=== PATIENT | male | born 1975 | race Caucasian/White ===

== ENCOUNTER 2017-03-20 06:23 | Day surgery (SDC) | payer BC ==
--- NOTE | 2017-03-01 10:16 | HP ---
ADMITTING HISTORY AND PHYSICAL: DATE OF ADMISSION: 03/20/17 ADMITTING DIAGNOSIS: Left renal calculus. PLANNED PROCEDURE: Shock wave lithotripsy of left renal calculus. SURGEON: Dr. Garcia ADMITTING HISTORY AND PHYSICAL: Ramiro Ji is a 41-year-old gentleman who originally had pain related to a calculus in the right ureter which he subsequently passed. He had a followup ultrasound, which revealed a 1.3-cm calculus in the lower pole of the left kidney and he would like to have treatment of the same. PAST MEDICAL HISTORY: Significant for kidney stones. PAST SURGICAL HISTORY: Significant for: 1. Appendectomy. 2. Bilateral ankle fractures. 3. LASIK eye surgery. MEDICATIONS ON ADMISSION: Ibuprofen p.r.n. ALLERGIES: No known drug allergies. SMOKING HISTORY: He is a 5-paig-ydt-day smoker for the last 30 years. REVIEW OF SYSTEMS: He is otherwise in good health. He denies any chest pain or shortness of breath. There is no history of diabetes mellitus or any other major systemic illness. PHYSICAL EXAMINATION VITAL SIGNS: Reveals blood pressure of 128/82, pulse 77 per minute and regular , oxygen saturation 98% on room air. LUNGS: Clear bilaterally. CARDIOVASCULAR: Regular rate and rhythm. S1 and S2. ABDOMEN: Soft with mild left flank tenderness. IMPRESSION: A 41-year-old gentleman with a nonobstructing left renal calculus , who desires treatment of the same. I have discussed the procedure in detail including possible risks of bleeding, infection, incomplete fragmentation, injury to the kidney and he understands and wishes to proceed as planned. PLAN: Shockwave lithotripsy of left renal calculus. CC: Dr. Sandra Rosenberg* [id number] #: [id number] [place]PITALTimi
[~2017-03-20 06:23] MED LIST: Buffered Lidocaine 1% SYRIN* 3 ML/SYR SYRINGE INTRADERM ONE; Dexamethasone IV* 4 MG/ML 1 ML (4 MG) IV SLOW PU ONE; Famotidine IV* 10 MG/ML 2 ML (20 mg) IV ONE
[2017-03-20] MEDS ORDERED: cefTRIAXone(*) 2 GM ADDV.VIAL IVPB ONE (07:05)
[2017-03-20] MEDS ORDERED: Dexamethasone IV* 4 MG/ML 1 ML (4 MG) ONE (07:05)
[2017-03-20] MEDS ORDERED: Famotidine IV* 10 MG/ML 2 ML (20 mg) ONE (07:05)
[2017-03-20] MEDS ORDERED: Midazolam* 1 MG/ML 2 ML VIAL (2 MG) ONE (07:26)
[2017-03-20] MEDS ORDERED: Remifentanil* 2 MG VIAL ONE (07:26)
[2017-03-20] MEDS ORDERED: fentaNYL* 50 MCG/ML 2 ML VIAL (100 MCG VIAL) ONE (07:26)
--- NOTE | 2017-03-20 08:07 | RAD ---
Indication: Bilateral urolithiasis. Comparison: January 30, 2017 Technique: Supine abdomen. Report: Approximate 6 mm stone or conglomerate of stones at the level of the inferior pole of the LEFT kidney. No additional suspicious calcifications visualized level of either renal fossa or along the expected course of the ureters. Densities at the RIGHT lower quadrant likely reflect postsurgical change of appendectomy consistent with surgical history. Unremarkable bowel gas pattern and soft tissue contours. IMPRESSION: Unchanged LEFT nephrolithiasis.
[2017-03-20] MEDS ORDERED: Furosemide IV* 10 MG/ML 2 ML VIAL (20 MG) ONE (08:18)
[2017-03-20] MEDS ORDERED: EPHEDrine (Pressors)* 50 MG/ML VIAL ONE (08:38)
[2017-03-20] MEDS ORDERED: fentaNYL* 50 MCG/ML 2 ML VIAL (100 MCG VIAL) IV PRN (08:47)
[2017-03-20] MEDS ORDERED: DiMENhydriNATE IV* 50 MG/ML VIAL IV PUSH PRN (08:47)
[2017-03-20 09:35] VITALS: BP 127/85
[2017-03-20] MEDS ORDERED: Ondansetron INJ* 2 MG/ML VIAL ONE (09:48)
--- NOTE | 2017-03-21 01:29 | OP ---
DATE OF OPERATION: 03/20/17 - SDS DATE OF : [birth year] - AGE: 42 years, Male. SURGEON: Srinivas Garcia MD ANESTHESIOLOGIST: Dr. Ibrahim. ANESTHESIA: General. PRE-OP DIAGNOSIS: Left renal calculus. POST-OP DIAGNOSIS: Left renal calculus. OPERATIVE PROCEDURE: Shock wave lithotripsy of left renal calculus. COMPLICATIONS: None. POSTOPERATIVE CONDITION: Stable. INDICATIONS: Ramiro Ji Jr. is a 42-year-old gentleman with a history of renal calculi. He had been evaluated and noted to have an approximately 1.3 cm calculus on ultrasound, which appeared smaller on the x-ray. He desires and is now being brought in for shock wave lithotripsy after thorough discussion of the procedure and possible risks including bleeding, infection, and incomplete fragmentation. DESCRIPTION OF PROCEDURE: After induction of the general anesthesia, the patient was placed in dorsal lithotomy position. The calculus, which was initially difficult to see on the preoperative x-ray, was identified on fluoroscopy and shock wave lithotripsy was commenced at a rate of 60 shocks per minute. After the initial 300 shocks, there was the pause in lithotripsy for several minutes in an effort to minimize any potential trauma to the kidney. Lithotripsy was then resumed and periodic imaging revealed good localization and fragmentation. A total of 1400 shocks were administered. The patient tolerated the procedure satisfactorily and was transferred back to the recovery area in stable condition. [id number] #: [id number] MTDD
== END 2017-03-20 09:52 | disposition home or self-care (01) ==
LOC: OR 06:23
PROVIDERS: ATTEND Urology
DX: N20.0 Calculus of kidney (principal); F17.210 Nicotine dependence, cigarettes, uncomplicated; Z87.442 Personal history of urinary calculi
CPT/HCPCS: 74000; J0696; J1100; J1940; J2250; J2405; J3010

== ENCOUNTER 2017-11-15 11:27 | Observation (INO) | payer BC ==
[2017-11-15] MEDS ORDERED: NS 0.9% 1000 ML* 1,000 ML IV ONE (12:47)
[2017-11-15] MEDS ORDERED: Aspirin Low Dose CHEW TAB* 81 MG PO ONE (12:47)
[2017-11-15 13:21] LABS: Hematocrit 41 % (42-52); Hemoglobin 14.3 g/dl (14.0-18.0); Mean Corpuscular HGB Conc 35 g/dl (31-36); Mean Corpuscular Hemoglobin 33 pg (27-31); Mean Corpuscular Volume 94 fL (80-94); Mean Platelet Volume 8 um3 (7.4-10.4); Red Blood Count 4.38 10^6/ul (4.0-5.4); Red Cell Distribution Width 13 % (10.5-15); White Blood Count 7.9 10^3/ul (3.5-10.8)
[2017-11-15 13:40] LABS: Albumin 4.1 g/dL (3.2-5.2); Anion Gap 3 mmol/L (2-11); BUN/Creatinine Ratio 17.2 (8-20); Blood Urea Nitrogen 17 mg/dL (6-24); CO2 Carbon Dioxide 32 mmol/L (22-32); Calcium 9.4 mg/dL (8.6-10.3); Chloride 105 mmol/L (101-111); EGFR African American 107.7 (>60); EGFR Non-African American 83.7 (>60); Glucose 92 mg/dL (70-100); Magnesium 2.1 mg/dL (1.9-2.7); Potassium 3.9 mmol/L (3.5-5.0); Sodium 140 mmol/L (133-145); Total Protein 6.6 g/dL (6.4-8.9)
[2017-11-15 13:41] LABS: ALT 17 U/L (7-52); AST < 3 U/L (13-39); Alkaline Phosphatase 60 U/L (34-104); C Reactive Protein 1.59 mg/L (< 5.00); Creatine Kinase 145 U/L (10-223); Globulin 2.5 g/dL (2-4); Lipase 29 U/L (11.0-82.0)
[2017-11-15] MEDS ORDERED: Iohexol 350* (CONTRAST) 500 ML MDV IV ONE (13:51)
[2017-11-15 14:13] LABS: Urine Bilirubin Negative (Negative); Urine Glucose Negative (Negative); Urine Nitrite Negative (Negative)
[2017-11-15 14:19] LABS: TSH (Thyroid Stimulating Horm) 1.29 mcIU/mL (0.34-5.60)
--- NOTE | 2017-11-15 14:32 | RAD ---
HISTORY: Chest pain COMPARISONS: None TECHNIQUE: Multiple contiguous axial CT scans of the chest were obtained after the administration of nonionic intravenous contrast, timed to the pulmonary arterial phase of contrast enhancement.. Coronal and sagittal multiplanar reformations are also submitted for review. FINDINGS: NECK AND THYROID: The lower neck and thyroid are unremarkable. CHEST WALL: There is no lower cervical, axillary, or supraclavicular lymphadenopathy by size criteria. HEART AND PERICARDIUM: The heart is unremarkable. AORTA AND PULMONARY VASCULATURE: There is no pulmonary arterial filling defect to suggest pulmonary embolism. There is no linear filling defect within the aorta to suggest aortic dissection. MEDIASTINUM: There is no mediastinal lymphadenopathy by size criteria. TARAS: There is no hilar lymphadenopathy by size criteria. AIRWAY AND ESOPHAGUS: The airway is unremarkable, without endobronchial filling defect. The esophagus is grossly normal. LUNG PARENCHYMA: The lungs are clear. PLEURA: No pleural abnormalities are noted. UPPER ABDOMEN: There is low-attenuation lesion of the right of liver measuring simple fluid in attenuation most consistent with a hepatic cyst. BONES AND SOFT TISSUES: Mild degenerative changes are noted OTHER: None. IMPRESSION: NO PULMONARY ARTERIAL FILLING DEFECT TO SUGGEST PULMONARY EMBOLISM.
[2017-11-15] MEDS ORDERED: Morphine INJ* 2 MG/ML 1 ML SYRINGE (TWO MG - NEW SYRINGE VERSION) IV PRN (15:55)
[2017-11-15] MEDS ORDERED: Acetaminophen TAB* 325 MG PO PRN (15:55)
[2017-11-15] MEDS: Nicotine PATCH 21 MG/24 HR* PATCH TRANSDERM SCH (17:59)
--- NOTE | 2017-11-15 18:04 | ED ---
Kalyan Abad Julia, scribed for Enrique Khan MD on 11/15/17 at 1237 . HPI Chest Pain - HPI Summary HPI Summary: This patient is a 42 year old M presenting to [facility] with a chief complaint of mid sternal chest pain characterized by pressure and dullness that worsens throughout the day since a week ago. The patient rates the pain 1/10 in severity at rest and 5/10 with exertion. Symptoms aggravated by exertion. Symptoms alleviated by rest. Patient reports upper back pain alleviated by rest and mild bilateral UE pain. Patient denies radiation to neck, nausea, diaphoresis, cough, edema, or SOB. - History of Current Complaint Chief Complaint: EDChestPainROMI Time Seen by Provider: 11/15/17 12:10 Hx Obtained From: Patient Onset/Duration: Started Weeks Ago - 1 Timing: Constant Current Severity: Mild Pain Intensity: 5 Pain Scale Used: 0-10 Numeric Chest Pain Location: Mid Sternal Chest Pain Radiates: No Character: Dull/Aching, Pressure/Squeezing Aggravating Factor(s): Exertion Alleviating Factor(s): Rest Associated Signs and Symptoms: Positive: Chest Pain, Back Pain - upper, Other: - bilateral extremity pain - Allergy/Home Medications Allergies/Adverse Reactions: Allergies Allergy/AdvReac Type Severity Reaction Status Date / Time No Known Allergies Allergy Verified 03/13/17 10:00 Home Medications: Home Medications Amphetamine/Dextroamph ER(NF) [Adderal XR (NF)] 20 mg PO DAILY 11/15/17 [ History Confirmed 11/15/17] Amphetamine/Dextroamph ER(NF) [Adderal XR (NF)] 30 mg PO DAILY 11/15/17 [ History Confirmed 11/15/17] PMH/Surg Hx/FS Hx/Imm Hx History: Reports: Hx Kidney Stones - BILAT, Other Problems/Disorders - LEFT RENAL CALCULI CURRENTLY Musculoskeletal History: Reports: Hx Arthritis - HANDS, SHOULDERS, Other Musculoskeletal History - BILATERAL BROSTROM ANKLE REPAIR 2008 Sensory History: Denies: Hx Cataracts, Hx Contacts or Glasses, Hx Glaucoma, Hx Hearing Aid Opthamlomology History: Denies: Hx Cataracts, Hx Contacts or Glasses, Hx Glaucoma Neurological History: Reports: Other Neuro Impairments/Disorders - ADHD, TAKES RX DAILY - Surgical History Surgery Procedure, Year, and Place: BILATERAL BROSTROM ANKLE REPAIR 2008 [place]. APPENDECTOMY 2002 [place]. LASIK 2012 [place] Hx Anesthesia Reactions: No Infectious Disease History: No Infectious Disease History: Denies: Traveled Outside the [place] in Last 30 Days - Family History Known Family History: Positive: Cardiac Disease - CHF, HTN - maternal - Social History Alcohol Use: None Hx Substance Use: No Substance Use Type: Reports: None Hx Tobacco Use: Yes Smoking Status (MU): Heavy Every Day Tobacco Smoker Type: Cigarettes Amount Used/How Often: 1 PPD FOR 28 YRS Length of Time of Smoking/Using Tobacco: 28 YRS Have You Smoked in the Last Year: Yes Review of Systems Negative: Fever, Skin Diaphoresis Positive: Chest Pain, Other - negative - radiation Negative: Shortness Of Breath, Cough Negative: Nausea Positive: Other - upper back and bilateral UE pain. Negative: Edema All Other Systems Reviewed And Are Negative: Yes Physical Exam - Summary Physical Exam Summary: General: well-appearing, no pain distress Skin: warm, color reflects adequate perfusion, dry Head: normal Eyes: EOMI, EUGENE ENT: normal Neck: supple, nontender Respiratory: CTA, breath sounds present Cardiovascular: RRR Abdomen: soft, nontender Bowel: present Musculoskeletal: normal, strength/ROM intact Neurological: normal, sensory/motor intact, A&O x3 Psychological: affect/mood appropriate Triage Information Reviewed: Yes Vital Signs On Initial Exam: Initial Vitals Temp Pulse Resp BP Pulse Ox 97.2 F 63 18 142/80 98 11/15/17 11:29 11/15/17 11:29 11/15/17 11:29 11/15/17 11:29 11/15/17 11:29 Vital Signs Reviewed: Yes - [place] Coma Scale Coma Scale Total: 15 Diagnostics - Vital Signs Vital Signs Temp Pulse Resp BP Pulse Ox 11/15/17 12:00 89 27 94 11/15/17 11:53 21 122/81 11/15/17 11:29 97.2 F 63 18 142/80 98 - Laboratory Lab Results: Lab Results 11/15/17 11/15/17 11/15/17 Range/Units 13:11 13:11 13:11 WBC (3.5-10.8) 10^3/ul RBC (4.0-5.4) 10^6/ul Hgb (14.0-18.0) g/dl Hct (42-52) % MCV (80-94) fL MCH (27-31) pg MCHC (31-36) g/dl RDW (10.5-15) % Plt Count (150-450) 10^3/ul MPV (7.4-10.4) um3 Neut % (Auto) (38-83) % Lymph % (Auto) (25-47) % [place] % (Auto) (1-9) % Eos % (Auto) (0-6) % Baso % (Auto) (0-2) % Absolute Neuts (auto) (1.5-7.7) 10^3/ul Absolute Lymphs (auto) (1.0-4.8) 10^3/ul Absolute Monos (auto) (0-0.8) 10^3/ul Absolute Eos (auto) (0-0.6) 10^3/ul Absolute Basos (auto) (0-0.2) 10^3/ul Absolute Nucleated RBC 10^3/ul Nucleated RBC % INR (Anticoag Therapy) 0.91 (0.77-1.02) APTT 33.8 (26.0-36.3) seconds Sodium 140 (133-145) mmol/L Potassium 3.9 (3.5-5.0) mmol/L Chloride 105 (101-111) mmol/L Carbon Dioxide 32 (22-32) mmol/L Anion Gap 3 (2-11) mmol/L BUN 17 (6-24) mg/dL Creatinine 0.99 (0.67-1.17) mg/dL Est GFR ( Amer) 107.7 (>60) Est GFR (Non-Af Amer) 83.7 (>60) BUN/Creatinine Ratio 17.2 (8-20) Glucose 92 (70-100) mg/dL Lactic Acid (0.5-2.0) mmol/L Calcium 9.4 (8.6-10.3) mg/dL Magnesium 2.1 (1.9-2.7) mg/dL Total Bilirubin 0.30 (0.2-1.0) mg/dL AST < 3 L (13-39) U/L ALT 17 (7-52) U/L Alkaline Phosphatase 60 (34-104) U/L Total Creatine Kinase 145 (10-223) U/L CK-MB (CK-2) 2.1 (0.6-6.3) ng/mL Troponin I 0.00 (<0.04) ng/mL C-Reactive Protein 1.59 (< 5.00) mg/L B-Natriuretic Peptide 15 ( - 100) pg/mL Total Protein 6.6 (6.4-8.9) g/dL Albumin 4.1 (3.2-5.2) g/dL Globulin 2.5 (2-4) g/dL Albumin/Globulin Ratio 1.6 (1-3) Lipase 29 (11.0-82.0) U/L TSH 1.29 (0.34-5.60) mcIU/mL Urine Color Urine Appearance Urine pH (5-9) Ur Specific [place] (1.010-1.030) Urine Protein (Negative) Urine Ketones (Negative) Urine Blood (Negative) Urine Nitrate (Negative) Urine Bilirubin (Negative) Urine Urobilinogen (Negative) Ur Leukocyte Esterase (Negative) Urine Glucose (Negative) 11/15/17 11/15/17 11/15/17 Range/Units 13:11 13:11 13:40 WBC 7.9 (3.5-10.8) 10^3/ul RBC 4.38 (4.0-5.4) 10^6/ul Hgb 14.3 (14.0-18.0) g/dl Hct 41 L (42-52) % MCV 94 (80-94) fL MCH 33 H (27-31) pg MCHC 35 (31-36) g/dl RDW 13 (10.5-15) % Plt Count 178 (150-450) 10^3/ul MPV 8 (7.4-10.4) um3 Neut % (Auto) 63.0 (38-83) % Lymph % (Auto) 29.6 (25-47) % [place] % (Auto) 5.4 (1-9) % Eos % (Auto) 1.6 (0-6) % Baso % (Auto) 0.4 (0-2) % Absolute Neuts (auto) 5.0 (1.5-7.7) 10^3/ul Absolute Lymphs (auto) 2.3 (1.0-4.8) 10^3/ul Absolute Monos (auto) 0.4 (0-0.8) 10^3/ul Absolute Eos (auto) 0.1 (0-0.6) 10^3/ul Absolute Basos (auto) 0 (0-0.2) 10^3/ul Absolute Nucleated RBC 0.01 10^3/ul Nucleated RBC % 0.1 INR (Anticoag Therapy) (0.77-1.02) APTT (26.0-36.3) seconds Sodium (133-145) mmol/L Potassium (3.5-5.0) mmol/L Chloride (101-111) mmol/L Carbon Dioxide (22-32) mmol/L Anion Gap (2-11) mmol/L BUN (6-24) mg/dL Creatinine (0.67-1.17) mg/dL Est GFR ( Amer) (>60) Est GFR (Non-Af Amer) (>60) BUN/Creatinine Ratio (8-20) Glucose (70-100) mg/dL Lactic Acid 1.4 (0.5-2.0) mmol/L Calcium (8.6-10.3) mg/dL Magnesium (1.9-2.7) mg/dL Total Bilirubin (0.2-1.0) mg/dL AST (13-39) U/L ALT (7-52) U/L Alkaline Phosphatase (34-104) U/L Total Creatine Kinase (10-223) U/L CK-MB (CK-2) (0.6-6.3) ng/mL Troponin I (<0.04) ng/mL C-Reactive Protein (< 5.00) mg/L B-Natriuretic Peptide ( - 100) pg/mL Total Protein (6.4-8.9) g/dL Albumin (3.2-5.2) g/dL Globulin (2-4) g/dL Albumin/Globulin Ratio (1-3) Lipase (11.0-82.0) U/L TSH (0.34-5.60) mcIU/mL Urine Color Yellow Urine Appearance Clear Urine pH 6.0 (5-9) Ur Specific [place] 1.011 (1.010-1.030) Urine Protein Negative (Negative) Urine Ketones Negative (Negative) Urine Blood Negative (Negative) Urine Nitrate Negative (Negative) Urine Bilirubin Negative (Negative) Urine Urobilinogen Negative (Negative) Ur Leukocyte Esterase Negative (Negative) Urine Glucose Negative (Negative) Result Diagrams: 11/15/17 13:11 11/15/17 13:11 Lab Statement: Any lab studies that have been ordered have been reviewed, and results considered in the medical decision making process. - CT Chest CT CT Interpretation Completed By: Radiologist - NO PULMONARY ARTERIAL FILLING DEFECT TO SUGGEST PULMONARY EMBOLISM. ED isiah has reviewed this report. - EKG 14:55 Cardiac Rate: NL EKG Rhythm: Sinus Rhythm - at [address] Segment: Normal Ectopy: None Chest Pain Course/Dx - Course Course Of Treatment: DISCUSSED WITH DR TATUM. ADMIT HOSPITALIST. NO CRITICAL CARE TIME. - Diagnoses Provider Diagnoses: Chest pain Discharge - Discharge Plan Condition: Stable Disposition: ADMITTED TO [facility] The documentation as recorded by the Kalyan garcia Julia accurately reflects the service I personally performed and the decisions made by , Enrique Khan MD.
[2017-11-15] MEDS ORDERED: Nicotine Patch Removal NOTE FOLLOW UP SCH (21:00)
[2017-11-15] MEDS ORDERED: Calcium Carbonate CHEW TAB* 500 MG (TUMS) PO SCH (21:00)
--- NOTE | 2017-11-15 22:01 | HP ---
CC: Dr. Rosenberg * HISTORY AND PHYSICAL: DATE OF ADMISSION: 11/15/17 PRIMARY CARE PROVIDER: Dr. Rosenberg. ATTENDING PHYSICIAN WHILE IN THE HOSPITAL: Dr. Bev Winslow * (report dictated by Hailee Ferguson NP). CHIEF COMPLAINT: Chest pain. HISTORY OF PRESENT ILLNESS: Mr. Ji is a 42-year-old male patient, he has a history of ADHD only and he is a tobacco abuser. He comes into the ED today stating that 3 weeks ago he had a flu shot. He has had instances in the past where he has had shoulder and back pain from it, but last week it has been different. He said he has been diagnosed with pleurisy before and he thought it was related to his flu shots and he had one 3 weeks ago and he thought maybe the back and chest pain he was having was related to that. However, he says the last week the pain really started in his back, radiates in front of his shoulders and into his chest and has been described as tightness and pressure that has never really gone away 100%, but it comes and goes. He says he has not had any associated nausea, shortness of breath, or any diaphoresis and says the pain does not go into his jaw or down into his arms. He says that he was going to see his primary care and when he went up to the stairs he has noticed that the discomfort came on fairly severe and when he sat down, it got better. There was concern and the patient was sent into the ER today to be evaluated for the chest discomfort he had been having. He denies having any abdominal pain. There has been no recent URI symptoms. Denies having any leg pain or calf swelling, calf pain. Denies having any shortness of breath. He says he has been feeling well with the exception of this discomfort and denies having any swelling in the lower extremities. Because of the chest pain and the fact that it was exertional at one point and the fact that he is a smoker, there was concern this could represent acute coronary syndrome and we were asked to evaluate for admission. PAST MEDICAL HISTORY: Significant for: 1. ADHD. 2. Appendectomy. 3. Cystoscopy. 4. Ankle surgery. HOME MEDICATIONS: Include: 1. Adderall 50 mg daily. 2. Ibuprofen 600 mg every 6 hours as needed. ALLERGIES TO MEDICATIONS: Include no known drug allergies. FAMILY HISTORY: His mother was diabetic. His father did have a history of dementia. SOCIAL HISTORY: He is a 2-pack a day smoker for about 28 years. Does not drink alcohol. Surrogate decision maker is his . REVIEW OF SYSTEMS: There is no documented fever. He denied having any significant weight change. No ear discharge. No rhinorrhea. No sore throat. No thyroid enlargement. Does admit to having chest pain per my HPI. Denies having any shortness of breath. No orthopnea, no nocturnal dyspnea. There was no abdominal pain, no nausea, no vomiting. No dysuria, no frequency. There was no seizure, no loss of consciousness. There was no skin ulcerations, no pruritus. Review of 14 systems completed, all others were negative. PHYSICAL EXAMINATION GENERAL: At this time, Mr. Ji is a 42-year-old male patient, he appears to be well nourished, well developed. He is sitting in the ED stretcher. He does not appear to be in any acute distress. VITAL SIGNS: Blood pressure 114/66, pulse 68, respirations 20, O2 sat 99%, temperature 97.2. HEENT: Head is atraumatic. Eyes: EOMs intact. Sclerae are anicteric and not pale. Throat: Oral mucosa appears to be moist. No oropharyngeal erythema. NECK: Supple. LUNGS: Clear to auscultation bilaterally. No wheezes, rales, or rhonchi. HEART: Sounds S1, S2. Regular rate and rhythm. No murmurs, rubs, or gallops. ABDOMEN: Soft, flat, nontender. Bowel sounds were present. EXTREMITIES: Pulses were 2+ throughout. No peripheral edema. He had 5/5 strength. NEUROLOGICAL: The patient is awake, alert, and oriented x3. Tongue midline. Communications Maintainer were equal. No gross focal deficits. SKIN: Intact. DIAGNOSTIC STUDIES/LAB DATA: WBC of 7.9, RBC of 4.38, hemoglobin of 14.3, hematocrit of 41, platelet count of 178. INR of 0.91, PTT of 33.8. Sodium 140 , potassium 3.9, chloride of 105, bicarb 32, BUN 17, creatinine 0.99, glucose 92 , lactate 1.4, calcium 9.4, mag 2.1. Total bili 0.3, AST less than 3, ALT 17, alk phos 60. CK 145, troponin 0.00, CK-MB 2.1. CRP 1.5. BNP of 15. Albumin of 4.1, TSH of 1.29, lipase 29. Urine was obtained, it was negative. He did have a chest CTA, which revealed no pulmonary arterial filling defect to suggest PE. He had an EKG obtained today, which showed normal sinus rhythm, rate of 75. No ST elevations or T-wave inversions were noted. Old medical records were reviewed. ASSESSMENT AND PLAN: Mr. Ji is a 42-year-old male patient coming into the ED today with complaints of chest discomfort. We were asked to evaluate for admission. He will be admitted under observation status for: 1. Chest pain. At this point, he does have risk factors for acute coronary syndrome, so I do think he deserve serial troponins, telemetry, aspirin. He is not having any chest discomfort now. Serial EKGs, we are going to evaluate in the morning. We will check an A1c, EKG in the morning, and place him on telemetry and get a cardiac stress test. 2. History of attention deficit hyperactivity disorder. In the setting of him having a stress test tomorrow, I am going to hold his meds. He can be restarted at discharge. 3. Code status. Full code. 4. DVT prophylaxis. He is low risk. I am going to go ahead and place him on SCDs. 5. Fluids, electrolytes, and nutrition. He can have a heart healthy diet and is n.p.o. after midnight. TIME SPENT: On the admission was approximately 60 minutes, greater than half the time spent [id number] with the patient obtaining history and physical, other half time was spent going over the plan of care with the patient and implementing plan of care. I did discuss the plan of care with my attending, Dr. Winslow; she is in agreement. HAILEE FERGUSON NP [id number] #: [id number] MTDD
[2017-11-16 07:12] LABS: BUN/Creatinine Ratio 16.8 (8-20); Calcium 9.3 mg/dL (8.6-10.3); EGFR African American 112.9 (>60); EGFR Non-African American 87.8 (>60); Potassium 4.1 mmol/L (3.5-5.0)
[2017-11-16] MEDS: Nicotine PATCH 21 MG/24 HR* PATCH TRANSDERM SCH (07:37)
[2017-11-16] MEDS ORDERED: Aspirin Low Dose CHEW TAB* 81 MG PO SCH (09:00)
[2017-11-16 10:11] LABS: Hematocrit 42 % (42-52); Hemoglobin 14.1 g/dl (14.0-18.0); Mean Corpuscular HGB Conc 34 g/dl (31-36); Mean Corpuscular Hemoglobin 32 pg (27-31); Mean Corpuscular Volume 94 fL (80-94); Mean Platelet Volume 8 um3 (7.4-10.4); Red Cell Distribution Width 13 % (10.5-15); White Blood Count 6.8 10^3/ul (3.5-10.8)
[2017-11-16 10:32] LABS: HDL Cholesterol 50.3 mg/dL
--- NOTE | 2017-11-16 11:52 | RAD ---
Edited for charges. INDICATION: Chest pain. COMPARISON: There are no prior studies available for comparison. Technique: A single day myocardial perfusion stress study was performed. Initially a resting study was performed. The patient was given an intravenous injection of 10.3 mCi of technetium 99m tetrofosmin and and the heart was imaged in multiple projections. The patient returned later in the day and under the direction of Dr. Watkins, the patient was exercised to a peak heart rate of 180 beats per minute which was 100% of the maximum predicted heart rate. Subsequently the patient was given intravenous injection of 25.2 mCi of technetium 99m tetrofosmin and the heart was imaged in multiple projections. Images were reconstructed in the axial, sagittal and coronal planes and in a 3- D format. FINDINGS: There appears to be normal wall motion and myocardial thickening. The left ventricular ejection fraction was calculated to be 54%. No significant focal abnormalities are seen on the perfusion images. There is no evidence for infarct or ischemia. IMPRESSION: NO EVIDENCE FOR INFARCT OR ISCHEMIA. ASSESSMENT: Low risk. Based on imaging criteria from ACC/AHA 2002 Guideline Update for the Management of Patients With Chronic Stable Angina Table 23. Noninvasive Risk Stratification. MTDD
[2017-11-16 12:27] VITALS: BP 102/70
--- NOTE | 2017-11-17 01:41 | DS ---
CC: Dr. Sandra Rosenberg DISCHARGE SUMMARY: DATE OF ADMISSION: 11/15/17 DATE OF DISCHARGE: 11/16/17 PRIMARY CARE PROVIDER: Dr. Rosenberg. DISCHARGE DIAGNOSIS: Chest pain, suspect musculoskeletal in origin, but low probability cardiac stre ss test documented on 11/16/17. SECONDARY DIAGNOSES: 1. History of attention deficit hyperactivity disorder. 2. Status post appendectomy. 3. History of cystoscopy. 4. History of ankle surgery. MEDICATIONS AT DISCHARGE: Unchanged from admission and include: 1. Adderall 50 mg daily. 2. Ibuprofen 600 mg every 6 hours as needed. LABORATORY DATA AND STUDIES PERFORMED DURING THE HOSPITAL STAY: Included: On 11/16/17, white blood cell count of 6.8, hemoglobin of 14.1, hematocrit of 42, and platelets of 27 1. Sodium was 139, potassium 4.1, chloride 106, carbon dioxide 29, BUN 16, creatinine 0.95. Liver funct ion tests were unremarkable at admission. His troponins remained at 0 throughout his hospital stay. Triglycerides were 198, cholesterol of 189, LDL of 99, and HDL of 50. The patient's CT angiogram of the chest obtained on 11/15/17, impression: "No pulmonary arterial tanvir ling defect to suggest pulmonary embolism." Nuclear part of the patient's cardiac stress test documented on 11/16/17, impression: "Low risk." T he patient had no significant focal abnormalities were seen. His EF was noted to be 54%. HOSPITALIZATION COURSE: Ramiro Ji is a 42-year-old male with history of smoking 2 packs per day as well as being on Adderall for ADHD, who presented to the hospital complaining of chest pain. He sta josseline that the chest pain is localized in the front of his chest, radiates to his back and between his shoulder blades. It had been going on for a couple of days and was worse with strenuous exercise. The patient was placed on overnight observation and followed up with troponins. His CT angiogram was also performed, which was basically unremarkable. His stress test on 11/16/17 showed low risk. The patient's troponins continued to be negative. Furthermore, the patient stated that his pain gets wor se when he moves. It is possible that it is musculoskeletal in origin. The patient is going to be discharged home to follow up with Dr. Rosenberg. I did suggest for the patie nt not to use ibuprofen on a daily basis as he usually does for recurrent headaches. I advised to us e Tylenol instead and use Tums or omeprazole as needed for GI prophylaxis while on nonsteroidal anti- inflammatory medications. The patient was not very interested in taking on prescribed omeprazole and Tums, but he agreed to use it as needed. PHYSICAL EXAMINATION: At the time of discharge, blood pressure of 112/70, heart rate of 64 and regul ar, respiratory rate 18, oxygen saturation 97% on room air, temperature 98.4. General: The patient is a very pleasant 42-year-old male, who is not in acute distress. Alert, awake, and oriented x3. H EENT: Head: Atraumatic, normocephalic. Eyes: Pupils are equal, reactive to light and accommodation . Oropharynx clear. Mucosa moist. Neck: Supple. No JVD. No bruits bilaterally. Cardiovascular: Regular rate and rhythm. No murmur. Respiratory: Clear to auscultation bilaterally. Abdomen: So ft, nontender. Bowel sounds are present in all 4 quadrants. Extremities: There is no edema. Pulse s +2 bilaterally. No clubbing or cyanosis. On neuro evaluation, speech is clear. Cranial nerves II through XII are grossly intact. Motor strength is 5/5 bilaterally. Please note that this is a short summary of the patient's hospitalization. Please refer to further edical records for details. [id number] #: [id number]
== END 2017-11-16 14:18 | disposition home or self-care (01) ==
LOC: ED 11:27 → MEDTELE 15:52
PROVIDERS: ADMIT Internal Medicine; ATTEND Internal Medicine
DX: R07.9 Chest pain, unspecified (principal); F90.1 Attention-deficit hyperactivity disorder, predominantly hyperactive type; Z90.89 Acquired absence of other organs; Z96.0 Presence of urogenital implants; Z98.1 Arthrodesis status; M54.9 Dorsalgia, unspecified; F17.210 Nicotine dependence, cigarettes, uncomplicated
CPT/HCPCS: 36415; 71275; 78452; 80048; 80053; 80061; 81003; 82550; 82553; 83036; 83605; 83690; 83735; 83880; 84443; 84484; 85025; 85610; 85730; 86140; 93005; 93017; 96374; 96375; 99283; 99406; A9270-GY; A9502; G0378; J2270; Q9967

== ENCOUNTER 2019-04-18 10:47 | Emergency (ER) | payer BC ==
[2019-04-18 10:55] VITALS: BP 130/81
--- NOTE | 2019-04-18 11:23 | UC ---
Respiratory Complaint HPI - HPI Summary HPI Summary: 44 yo male presents with sore throat and productive cough for the last 3 days. He feels congested in his chest. He has felt hot/cold, but has not taken his temperature. He has been taking ibuprofen for his symptoms with little relief. He denies SOB, chest pain, abdominal pain - History of Current Complaint Chief Complaint: UCRespiratory Stated Complaint: URI Time Seen by Provider: 04/18/19 11:23 Hx Obtained From: Patient Onset/Duration: Gradual Onset Severity Initially: Mild Severity Currently: Mild Pain Intensity: 3 Pain Scale Used: 0-10 Numeric Character: Cough: Productive - Allergies/Home Medications Allergies/Adverse Reactions: Allergies Allergy/AdvReac Type Severity Reaction Status Date / Time No Known Allergies Allergy Verified 04/18/19 10:55 PMH/Surg Hx/FS Hx/Imm Hx - Additional Past Medical History Additional PMH: ADHD - Surgical History Surgical History: Yes Surgery Procedure, Year, and Place: BILATERAL BROSTROM ANKLE REPAIR 2008 [place]. APPENDECTOMY 2001 [place]. LASIK 2011 [place] - Family History Known Family History: Positive: Cardiac Disease - CHF, HTN - maternal - Social History Occupation: Employed Full-time Lives: With Family Alcohol Use: None Substance Use Type: None Smoking Status (MU): Former Smoker Type: Cigarettes Amount Used/How Often: 1-2 PPD FOR 28 YRS Length of Time of Smoking/Using Tobacco: 28 YRS Have You Smoked in the Last Year: Yes Household Exposure Type: Cigarettes Review of Systems All Other Systems Reviewed And Are Negative: Yes Constitutional: Positive: Negative Skin: Positive: Negative Eyes: Positive: Negative ENT: Positive: Ear Ache Respiratory: Positive: Cough Cardiovascular: Positive: Negative Gastrointestinal: Positive: Negative Neurovascular: Positive: Negative Neurological: Positive: Negative Psychological: Positive: Negative Physical Exam - Summary Physical Exam Summary: GENERAL: NAD. WDWN. No pain distress. SKIN: No rashes, sores, lesions, or open wounds. HEENT: Head: AT/NC Eyes: EOM intact. Conjunctiva clear without inflammation or discharge. Ears: Hearing grossly normal. TMs intact, no bulging, erythema, or edema. Nose: Nasal mucosa pink and moist. NTTP maxillary and frontal sinus. Throat: Posterior oropharynx without exudates, erythema, or tonsillar enlargement. Uvula midline. NECK: Supple. Nontender. No lymphadenopathy. CHEST: CTAB. No r/r/w. No accessory muscle use. Breathing comfortably and in no distress. CV: RRR. Without m/r/g. Pulses intact. Cap refill <2seconds NEURO: Alert. PSYCH: Age appropriate behavior. Triage Information Reviewed: Yes Vital Signs: Initial Vital Signs Temp 98.7 F 04/18/19 10:52 Pulse 86 04/18/19 10:52 Resp 17 04/18/19 10:52 BP 130/81 04/18/19 10:52 Pulse Ox 99 04/18/19 10:52 Vital Signs Reviewed: Yes Respiratory Course/Dx - Course Course Of Treatment: CXR: IMPRESSION: #. Stigmata of obstructive lung disease. No acute pulmonary or cardiac process evident. Suspect bronchitis. Discussed viral vs bacterial cause and pt and his prefer to be on antibiotics at this time. - Differential Dx/Diagnosis Provider Diagnosis: Bronchitis Discharge - Sign-Out/Discharge Documenting (check all that apply): Patient Departure All imaging exams completed and their final reports reviewed: Yes - Discharge Plan Condition: Stable Disposition: HOME Prescriptions: Azithromycin TAB* [Zithromax TAB (Z-JENNIE) 250 mg #6 tabs] 2 tab PO .TODAY, THEN 1 DAILY #1 jennie Patient Education Materials: Acute Bronchitis (ED) Forms: *Work Release Referrals: Sandra Rosenberg MD [Primary Care Provider] - Additional Instructions: If you develop a fever, shortness of breath, chest pain, new or worsening symptoms - please call your PCP or go to the ED immediately. 1) Your chest X-Ray was normal today and did not show any pneumonia 2) Rest and drink plenty of fluids and take the antibiotics as prescribed - Billing Disposition and Condition Condition: STABLE Disposition: Home
== END 2019-04-18 12:27 | disposition home or self-care (01) ==
LOC: UCEAST 10:47
DX: J40 Bronchitis, not specified as acute or chronic (principal); Z87.891 Personal history of nicotine dependence
CPT/HCPCS: 71046; 99212; G0463